=== PATIENT | male | born 1990 | race Asian ===

== ENCOUNTER 2017-10-17 03:21 | Emergency (ER) | payer MEDICAID, OTHER ==
[~2017-10-17] VITALS: Ht 185.4 cm; Wt 84.5 kg
[2017-10-17 03:27] VITALS: BP 125/101
[2017-10-17 05:09] VITALS: BP 119/85
== END 2017-10-17 05:09 | disposition home or self-care (01) ==
LOC: MED 03:21
DX: K25.9 Gastric ulcer, unspecified as acute or chronic, without hemorrhage or perforation (principal)
CPT/HCPCS: 99283